=== PATIENT | male | born 2000 | race Two or more races ===

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

== ENCOUNTER 2022-06-13 05:13 | Emergency (ER) | payer OTHER, SELFPAY ==
[2022-06-13 05:31] VITALS: BP 121/76; PULSE 77; RESP 18; TEMP 37; O2SAT 96; BMI 25.8
[2022-06-13 05:52] LABS: MANUAL DIFF FLAG NO
[2022-06-13 05:53] LABS: Basophils Percent Auto 0.5 % (0-2); Eosinophils Percent Auto 0.5 % (0-4); Hematocrit 43.5 % (42.0-52.0); Imm Gran Abs Auto 0.01 X10*3/uL (0.00-0.03); Imm Gran Pct Auto 0.1 % (0.0-0.4); Lymphocytes Absolute Auto 2.6 X10*3/uL (1.2-4.9); Lymphocytes Percent Auto 34.3 % (20-40); Mean Corpuscular HGB Conc 32.2 g/dl (31.0-36.0); Mean Corpuscular Hemoglobin 25.7 pg (27.0-33.0); Mean Corpuscular Volume 79.8 fL (80.0-98.0); Mean Platelet Volume 9.4 fL (9.4-12.4); Monocytes Absolute Auto 0.6 X10*3/uL (0.1-1.2); Monocytes Percent Auto 8.4 % (2-11); Neutrophils Absolute Auto 4.3 x10*3/uL (2.0-8.3); Neutrophils Percent Auto 56.2 % (45-73); Platelet Count 229 X10*3/uL (160-400); Red Blood Count 5.45 X10*6/uL (4.60-5.80); White Blood Count 7.7 X10*3/uL (4.8-10.8)
[2022-06-13 06:09] LABS: Anion Gap 12 (12-20); Blood Urea Nitrogen 11 mg/dL (9-16); Calcium 9.1 mg/dL (8.4-10.2); Carbon Dioxide 25 mmol/L (22-29); Chloride 107 mmol/L (96-108); Creatinine Clr Calc Pharmacy 112.6; Estimated Glomerular Filt Rate > 60; Glucose Random 107 mg/dL (60-115); Potassium 4.3 mmol/L (3.3-5.1); Sodium 140 mmol/L (135-145)
[2022-06-13 06:29] LABS: Influenza A PCR NEGATIVE (Negative); Influenza B PCR NEGATIVE (Negative); Resp Syncy Virus RNA Qual PCR NEGATIVE (Negative); SARS COV2 PCR INHOUSE NEGATIVE (Negative)
[2022-06-13 07:10] VITALS: BP 104/74; PULSE 71; RESP 16; TEMP 37.3; O2SAT 99
[2022-06-13 09:05] VITALS: BP 108/60; PULSE 83; RESP 18; TEMP 36.7; O2SAT 99
--- NOTE | 2022-06-13 10:26 | ED_ITS ---
HPI - Abdominal Pain General Chief Complaint: Abdominal Pain Stated Complaint: Abd pain Time Seen by Provider: 06/13/22 10:17 Source: patient Limitations: no limitations History of Present Illness HPI narrative: Patient complaining of epigastric pain which started last night. Sudden-onset. Several episodes of vomiting. He states he had an episode 1 time before which was attributed to lactose intolerance. He denies eating dairy however. No diarrhea but states he has had multiple bowel movements. No fevers or chills. Currently denies nausea. Related Data Previous Rx's Medication Instructions Recorded sulfacetamide sodium 10 % eye 1 drp ophthalmic-Right Q4H #5 mL 12/01/20 drops (Bleph-10) omeprazole 20 mg capsule,delayed 20 mg PO DAILY #30 caps 06/13/22 release Allergies Allergy/AdvReac Type Severity Reaction Status Date / Time No Known Allergies Allergy Verified 06/13/22 07:27 Review of Systems Comments: No fevers or chills Comments: No chest pain Comments: No cough or dyspnea Comments: Abdominal discomfort as described PMFSH Past Medical History Medical History (Updated 06/13/22 @ 11:30 by Minh Coker MD) Asthma No known health problems Social History Social History Advance Directives: No Advance Directives Information Provided: Yes Physical Exam ED Vital Signs: Vital Signs - 24 hr 06/13/22 05:31 06/13/22 07:10 06/13/22 09:05 Temperature 98.6 F 99.2 F 98.0 F Pulse Rate 77 71 83 Respiratory Rate 18 16 18 Blood Pressure 121/76 104/74 108/60 Pulse Oximetry 96 99 99 Oxygen Delivery Method Room Air Room Air Room Air 06/13/22 10:36 Temperature 98.6 F Pulse Rate 75 Respiratory Rate 20 Blood Pressure 123/70 Pulse Oximetry 100 Oxygen Delivery Method Room Air BMI result Body Mass Index 25.8 Const Other: Awake and alert. No acute distress. Vital signs stable HENMT Other: Mucosa moist Resp Other: Clear and equal bilaterally without wheezes rales or rhonchi Cardio Other: Regular rate and rhythm without murmurs rubs or gallops GI Other: Soft. Tender epigastrium without guarding or rebound. Nondistended. No organomegaly. Normoactive bowel sounds Skin Other: Warm and dry without rash Medical Decision Making Medical Decision Making MDM Narrative: Patient with vomiting, sudden onset overnight with increased bowel movements without priti diarrhea. Some epigastric tenderness but no evidence of focal right upper or lower abdominal pain. He is no longer nauseous. Will treat with GI cocktail and omeprazole. 10:29. Lab work so far is unremarkable. CBC is normal. Electrolytes and BUN and creatinine are normal. Await LFTs and lipase. 11:28. Lipase is normal. LFTs are mildly elevated although without evidence of obstruction. Patient is feeling 100% better after the GI cocktail. I do not think the elevated LFTs are directly causing his symptoms and his more likely gastritis. Will start him on proton pump inhibitor and have him follow-up with gastroenterology Lab Data 06/13/22 05:47 06/13/22 05:47 Labs: Lab Results 06/13/22 06/13/22 06/13/22 Range/Units 05:44 05:47 05:47 WBC 7.7 (4.8-10.8) X10*3/uL RBC 5.45 (4.60-5.80) X10*6/uL Hgb 14.0 (14.0-18.0) g/dl Hct 43.5 (42.0-52.0) % MCV 79.8 L (80.0-98.0) fL MCH 25.7 L (27.0-33.0) pg MCHC 32.2 (31.0-36.0) g/dl RDW 15.0 (11.0-16.0) % Plt Count 229 (160-400) X10*3/uL MPV 9.4 (9.4-12.4) fL Immature Gran % (Auto) 0.1 (0.0-0.4) % Neut % (Auto) 56.2 (45-73) % Lymph % (Auto) 34.3 (20-40) % [place] % (Auto) 8.4 (2-11) % Eos % (Auto) 0.5 (0-4) % Baso % (Auto) 0.5 (0-2) % Lymph # (Auto) 2.6 (1.2-4.9) X10*3/uL [place] # (Auto) 0.6 (0.1-1.2) X10*3/uL Eos # (Auto) 0.0 (0.0-0.4) X10*3/uL Baso # (Auto) 0.0 (0.0-0.2) X10*3/uL Abs Immat Gran (auto) 0.01 (0.00-0.03) X10*3/uL Absolute Neuts (auto) 4.3 (2.0-8.3) x10*3/uL Absolute Nucleated RBC 0.000 (0.0-0.012) X10*3/uL Nucleated RBC % (auto) 0.0 (0.0-0.2) /100WBC Sodium 140 (135-145) mmol/L Potassium 4.3 (3.3-5.1) mmol/L Chloride 107 (96-108) mmol/L Carbon Dioxide 25 (22-29) mmol/L Anion Gap 12 (12-20) BUN 11 (9-16) mg/dL Creatinine 1.08 (0.5-1.4) mg/dL Estim Creat Clear Calc 112.6 Estimated GFR > 60 Random Glucose 107 (60-115) mg/dL Calcium 9.1 (8.4-10.2) mg/dL Total Bilirubin 0.9 (0.0-1.0) mg/dL Direct Bilirubin 0.3 (0.0-0.5) mg/dL AST 85 H (5-37) U/L ALT 184 H (0-40) U/L Alkaline Phosphatase 138 H (39-117) U/L Total Protein 7.5 (6.5-8.0) g/dL Albumin 4.1 (3.5-5.0) g/dL Lipase 21 (8-78) U/L Influenza Type A (PCR) NEGATIVE (Negative) Influenza Type B (PCR) NEGATIVE (Negative) RSV RNA Qual (PCR) NEGATIVE (Negative) SARS-CoV-2 RNA (RT-PCR) NEGATIVE (Negative) Medications Administered Discontinued Medications Generic Name Dose Route Start Last Admin Trade Name Freq PRN Reason Stop Dose Admin Al Hydroxide/Mg Hydroxide 30 ml 06/13/22 10:26 06/13/22 10:44 Magnesium Hydrox/Alum Hydrox 30 Ml Oral.Susp PO 06/13/22 10:27 30 ml ONCE ONE Administration Lidocaine HCl 15 ml 06/13/22 10:26 06/13/22 10:44 Lidocaine Hcl Viscous 2 % 15 Ml Solution PO 06/13/22 10:27 15 ml ONCE ONE Administration Omeprazole 20 mg 03/01/23 10:26 06/13/22 10:43 Omeprazole 20 Mg Capsule.Dr PO 06/13/22 10:27 20 mg ONCE ONE Administration Discharge Plan Discharge Clinical Impression: Gastritis Patient Disposition: Home, Self-Care Instructions: Gastritis (ED) Additional Instructions: Your workup today was reassuring. Your liver function tests were mildly elevated which is a nonspecific finding. Be sure to follow-up with gastroenterology for follow-up. In the meantime I am prescribing an acid blocking medicine Prescriptions: New omeprazole 20 mg capsule,delayed release(DR/EC) 20 mg PO DAILY Qty: 30 0RF No Action sulfacetamide sodium [Bleph-10] 10 % drops 1 drp ophthalmic-Right Q4H Qty: 5 0RF Referrals: Logan Reis [Physician] -
[2022-06-13 10:36] VITALS: BP 123/70; PULSE 75; RESP 20; TEMP 37; O2SAT 100
[2022-06-13] MEDS: Omeprazole 20 MG CAPSULE.DR PO (10:43)
[2022-06-13] MEDS: Lidocaine HCl Viscous 2 % 15 ML SOLUTION PO (10:44)
[2022-06-13] MEDS: Magnesium Hydrox/Alum Hydrox 30 ML ORAL.SUSP PO (10:44)
[2022-06-13 10:55] LABS: Alanine Aminotransferase 184 U/L (0-40); Albumin Level 4.1 g/dL (3.5-5.0); Alkaline Phosphatase 138 U/L (39-117); Aspartate Amino Transferase 85 U/L (5-37); Bilirubin Direct 0.3 mg/dL (0.0-0.5); Bilirubin Total 0.9 mg/dL (0.0-1.0); Lipase 21 U/L (8-78); Total Protein 7.5 g/dL (6.5-8.0)
[2022-06-13 11:51] LABS: Appearance Urine Clear; Color Urine Yellow; Glucose Urine UA Negative (Negative); Leukocyte Esterase Urine Negative (Negative); Nitrite Urine Negative (Negative); Specific Gravity - Urine 1.025 (1.005-1.025); Urine Blood Negative (Negative); Urine Ketones Negative (Negative); Urine Protein Trace mg/dL (Neg-Trace)
== END 2022-06-13 11:41 | disposition home or self-care (01) ==
PROVIDERS: Emergency Provider Emergency Medicine
DX: K29.70 Gastritis, unspecified, without bleeding (principal); R10.13 Epigastric pain; Z20.822 Contact with and (suspected) exposure to COVID-19; Z20.828 Contact with and (suspected) exposure to other viral communicable diseases
CPT/HCPCS: 0241U; 36415; 80048; 80076; 81003; 83690; 85025; 99283

== ENCOUNTER 2022-09-30 19:05 | Emergency (ER) | payer OTHER, SELFPAY ==
[2022-09-30 19:06] VITALS: BP 153/100; PULSE 73; RESP 20; TEMP 36.7; O2SAT 99; BMI 25.1
[2022-09-30 19:18] LABS: MANUAL DIFF FLAG NO
[2022-09-30 19:21] LABS: Basophils Absolute Auto 0.1 X10*3/uL (0.0-0.2); Basophils Percent Auto 0.4 % (0-2); Eosinophils Absolute Auto 0.2 X10*3/uL (0.0-0.4); Eosinophils Percent Auto 1.4 % (0-4); Hematocrit 45.4 % (42.0-52.0); Hemoglobin 14.6 g/dl (14.0-18.0); Imm Gran Abs Auto 0.02 X10*3/uL (0.00-0.03); Imm Gran Pct Auto 0.2 % (0.0-0.4); Lymphocytes Absolute Auto 2.7 X10*3/uL (1.2-4.9); Lymphocytes Percent Auto 23.9 % (20-40); Mean Corpuscular HGB Conc 32.2 g/dl (31.0-36.0); Mean Corpuscular Hemoglobin 25.9 pg (27.0-33.0); Mean Corpuscular Volume 80.5 fL (80.0-98.0); Mean Platelet Volume 9.6 fL (9.4-12.4); Monocytes Absolute Auto 0.8 X10*3/uL (0.1-1.2); Monocytes Percent Auto 6.9 % (2-11); Neutrophils Absolute Auto 7.6 x10*3/uL (2.0-8.3); Neutrophils Percent Auto 67.2 % (45-73); Platelet Count 266 X10*3/uL (160-400); Red Blood Count 5.64 X10*6/uL (4.60-5.80); White Blood Count 11.4 X10*3/uL (4.8-10.8)
[2022-09-30 19:29] LABS: Appearance Urine Clear; Color Urine Yellow; Glucose Urine UA Negative (Negative); Leukocyte Esterase Urine Trace (Negative); Nitrite Urine Negative (Negative); PH 7.5 (5.0-9.0); Specific Gravity - Urine 1.025 (1.005-1.025); UMIC TRIGGER UACC YES; Urine Blood Negative (Negative); Urine Ketones Trace mg/dL (Negative); Urine Protein Trace mg/dL (Neg-Trace)
[2022-09-30 19:34] LABS: Bacteria Urine None Seen (None Seen); Hyaline Casts Urine 0-2 /LPF (0-2); RBC Urine 0-2 /HPF (0-2); Squamous Epithelial Cell Urine 0-2 /HPF (0-2); WBC Urine 0-5 /HPF (0-5)
--- NOTE | 2022-09-30 19:34 | PC.NURSE ---
Assumed care of pt. Pt ambulated to room under power, no acute distress noted. Pt c/o upper abdominal pain, bloating with gas x 1 month, states worse when eating fatty foods. Denies previous surgeries. Sts had previous prescription for omeprazole that worked for his pain, ran out of script. 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 On assessment, active bowel sounds, no pain with palpation. Has talen OTC medications for acid and gas with no relief. Pending lab results and urine. WCTM
[2022-09-30 19:36] LABS: Alanine Aminotransferase 27 U/L (0-40); Albumin Level 4.6 g/dL (3.5-5.0); Alkaline Phosphatase 127 U/L (39-117); Anion Gap 13 (12-20); Aspartate Amino Transferase 20 U/L (5-37); Bilirubin Total 1.1 mg/dL (0.0-1.0); Blood Urea Nitrogen 13 mg/dL (9-16); Calcium 9.5 mg/dL (8.4-10.2); Carbon Dioxide 25 mmol/L (22-29); Chloride 107 mmol/L (96-108); Creatinine Clr Calc Pharmacy 87.2; Estimated Glomerular Filt Rate > 60; Glucose Random 94 mg/dL (60-115); Lipase 20 U/L (8-78); Potassium 4.2 mmol/L (3.3-5.1); Sodium 141 mmol/L (135-145); Total Protein 8.3 g/dL (6.5-8.0)
--- NOTE | 2022-09-30 19:50 | ED_ITS ---
HPI - General Adult General Chief complaint: Abdominal Pain Stated complaint: abd pain Time Seen by Provider: 09/30/22 19:40 Source: patient and clinical abstractor Mode of arrival: ambulatory Limitations: language barrier History of Present Illness HPI narrative: Patient is a 21 year old assigned male at with a history of GERD presenting to the emergency department today with epigastric pain. Patient states that over the last month he has had epigastric pain that is worse after he eats. Patient states that previously he was given omeprazole which helped but he has been out for at least a month. Patient denies any dizziness, lightheadedness, nausea, vomiting, fever, chills, blurry vision, double vision, loss of vision, chest pain, difficulty breathing, shortness of breath, back pain, night sweats, pain with urination, increased urinary frequency, increased urinary urgency, blood in his urine or stool, syncope or a near syncopal episode, recent trauma or falls, bowel incontinence, bladder incontinence, bowel retention, bladder retention, or any other complaints at this time. Onset (ago): month(s) (1) Location: abdomen Radiation: non-radiation Severity: mild Severity scale (1-10): 3 Quality: aching Pain Consistency: intermittent Relieving factors: none Exacerbating factors: none Associated symptoms: denies other symptoms Treatments prior to arrival: none Related Data Previous Rx's Medication Instructions Recorded sulfacetamide sodium 10 % eye 1 drp ophthalmic-Right Q4H #5 mL 12/01/20 drops (Bleph-10) omeprazole 20 mg capsule,delayed 20 mg PO DAILY #30 caps 06/13/22 release omeprazole 20 mg capsule,delayed 20 mg PO DAILY #30 caps 09/30/22 release Allergies Allergy/AdvReac Type Severity Reaction Status Date / Time No Known Allergies Allergy Verified 09/30/22 19:06 Review of Systems Constitutional: Constitutional: Reports no additional constitutional complaints, Denies chills, Denies fever(s) and Denies night sweats Eyes: Eyes: Reports no additional eye complaints, Denies blurry vision, Denies change in vision, Denies diplopia, Denies eye discharge, Denies loss of vision and Denies eye pain ENT: Denies dizziness Cardiovascular: Cardiovascular: Reports no additional cardiovascular complaints, Denies chest pain, Denies lightheadedness, Denies Loss of Consciousness and Denies dyspnea Respiratory: Respiratory: Reports no additional respiratory complaints and Denies dyspnea Gastrointestinal: Gastrointestinal: Reports no additional gastrointestinal complaints, Reports abdominal pain (epigastric pain), Denies melena, Denies hematochezia, Denies change in bowel habits and Denies change in stool character Genitourinary: Genitourinary: Reports no additional male genitourinary complaints, Denies hematuria, Denies oliguria, Denies difficulty urinating, Denies dysuria, Denies urinary frequency, Denies urinary hesitancy, Denies urinary incontinence and Denies urinary urgency Musculoskeletal: Musculoskeletal: Reports no additional musculoskeletal compla ints, Denies numbness and Denies tingling Neurologic: Denies dizziness, Denies loss of vision, Denies numbness and Denies tingling Psychiatric: Psychiatric: Reports no additional psychiatric complaints Endocrine: Endocrine: Reports no additional endocrine complaints Hematologic/Lymphatic: Hematologic/Lymphatic: Reports no additional hematologic/lymphatic complaints Allergic/Immunologic: Allergic/Immunologic: Reports no additional allergic/immunologic complaints PMFSH Past Medical History Attestation statement: The following information was validated with the patient. Source: old records reviewed and nursing notes reviewed Medical History Asthma No known health problems Social History Social History Alcohol intake: current Alcohol intake frequency: holidays/special occasions only Smoked in Last 30 Days: No Use of substances other than those prescribed or required for medical reasons: No Advance Directives: No Advance Directives Information Provided: No Physical Exam ED Vital Signs: Vital Signs - 24 hr 09/30/22 19:06 09/30/22 20:13 Temperature 98.1 F 98.1 F Pulse Rate 73 68 Respiratory Rate 20 16 Blood Pressure 153/100 H 115/78 Pulse Oximetry 99 98 Oxygen Delivery Method Room Air Room Air BMI result Body Mass Index 25.1 Const General: cooperative, no acute distress, alert and awake Nutritional Appearance: well nourished Orientation/consciousness: patient oriented x3 Limitations: no limitations HENMT Head: Yes normal to inspection and Yes atraumatic Ears: hearing grossly normal bilaterally and external ears normal General nose exam: Normal external nose present, no nasal discharge noted and no epistaxis Face and sinus: Yes normal facial exam, No abrasion and No laceration Mouth: Normal oral and palatal mucosa present, no drooling and no muffled voice Eyes General: appearance normal, both eyes and all related structures Periorbital: periorbital findings normal Eyelids: Yes eyelids normal Conjunctivae: conjunctivae normal Pupils: Equal, round and reactive pupils present EOM: EOMs intact bilaterally Neck Neck: Yes normal visual inspection, Yes full ROM and Yes no lymphadenopathy Chest Chest palpation & inspection: normal inspection of the chest Resp Effort & Inspection: normal respiratory effort and able to speak in complete sentences Auscultation: clear to auscultation bilaterally Cardio Rate: regular rate Rhythm: regular rhythm GI Inspection: Yes normal to inspection Palpation (GI): Soft to palpation, not firm, nontender and no guarding Neuro General: patient oriented x3 and moves all extremities Cranial nerves: Yes Equal, round and reactive pupils present Cognition (Neuro): normal cognition Motor exam (neuro): 5/5 motor strength present throughout Sensory Exam: Normal double simultaneous stimulation for sensation Coordination: [id number] test normal Extrem General: Yes normal to inspection, Yes full ROM and Yes capillary refill normal Psych Appearance: grossly normal Mental Status: mental status grossly normal Affect: normal affect Attitude: cooperative Thought process: Normal thought process present Thought content: Normal thought content present Insight: Good insight present (Psych) Medications Administered Discontinued Medications Generic Name Dose Route Start Last Admin Trade Name Nadia PRN Reason Stop Dose Admin Al Hydroxide/Mg Hydroxide 15 ml 09/30/22 19:58 09/30/22 20:14 Magnesium Hydrox/Alum Hydrox 30 Ml Oral.Susp PO 09/30/22 19:59 15 ml ONCE ONE Administration Sodium Chloride 1,000 mls @ 999 mls/hr 09/30/22 20:00 09/30/22 21:10 Ns IV 09/30/22 21:00 Infused .Q1H1M MAURA Infusion Lidocaine HCl 15 ml 09/30/22 19:58 09/30/22 20:14 Lidocaine Hcl Viscous 2 % 15 Ml Solution MUCOUS MEM 09/30/22 19:59 15 ml ONCE ONE Administration Ondansetron HCl 4 mg 09/30/22 19:58 09/30/22 20:14 Ondansetron Hcl 4 Mg/2 Ml Vial IVPUSH 09/30/22 19:59 4 mg ONCE ONE Administration Pantoprazole Sodium 40 mg 09/30/22 19:58 09/30/22 20:14 Pantoprazole Sodium 40 Mg/10 Ml Vial IVPUSH 09/30/22 19:59 40 mg ONCE ONE Administration Medical Decision Making Medical Decision Making [facility] Narrative: Patient is a 21 year old assigned male at with a history of GERD presenting to the emergency department today with epigastric pain. Patient's physical exam was unremarkable. Patient's blood work was unremarkable. I explained my physical exam findings as well as all test results to the patient. I answered all questions asked by the patient. Patient received a GI cocktail which he stated helped his symptoms significantly. I stressed the importance of the patient taking his medication as prescribed. I stressed the importance of the patient following up with his primary care provider and a GI specialist. I stressed the importance of the patient returning to the emergency department immediately if his symptoms were to worsen or if he were to develop any dizziness, shortness of breath, difficulty breathing, chest pain, blurry vision, loss of vision, nausea, vomiting, abdominal pain, fever, chills, back pain, or any other complaints. Patient verbalized agreement and understanding with this treatment plan and discharge. Differential Diagnosis Differential Diagnoses: The differential diagnosis associated with the presentation includes GERD, epigastric pain Admission/Observation Consideration of admission/observation: Escalation of care including admission/observation considered Patient would have been admitted to the hospital had his work up had any findings where hospital admission was appropriate. Lab Data MDM Lab Attestation statement: I reviewed the patient's lab results. My interpretation of these studies and their corresponding values is that they are grossly normal. 09/30/22 19:14 09/30/22 19:14 Labs: Lab Results 09/30/22 09/30/22 09/30/22 Range/Units 19:14 19:14 19:23 WBC 11.4 H (4.8-10.8) X10*3/uL RBC 5.64 (4.60-5.80) X10*6/uL Hgb 14.6 (14.0-18.0) g/dl Hct 45.4 (42.0-52.0) % MCV 80.5 (80.0-98.0) fL MCH 25.9 L (27.0-33.0) pg MCHC 32.2 (31.0-36.0) g/dl RDW 14.0 (11.0-16.0) % Plt Count 266 (160-400) X10*3/uL MPV 9.6 (9.4-12.4) fL Immature Gran % (Auto) 0.2 (0.0-0.4) % Neut % (Auto) 67.2 (45-73) % Lymph % (Auto) 23.9 (20-40) % [place] % (Auto) 6.9 (2-11) % Eos % (Auto) 1.4 (0-4) % Baso % (Auto) 0.4 (0-2) % Lymph # (Auto) 2.7 (1.2-4.9) X10*3/uL [place] # (Auto) 0.8 (0.1-1.2) X10*3/uL Eos # (Auto) 0.2 (0.0-0.4) X10*3/uL Baso # (Auto) 0.1 (0.0-0.2) X10*3/uL Abs Immat Gran (auto) 0.02 (0.00-0.03) X10*3/uL Absolute Neuts (auto) 7.6 (2.0-8.3) x10*3/uL Absolute Nucleated RBC 0.000 (0.0-0.012) X10*3/uL Nucleated RBC % (auto) 0.0 (0.0-0.2) /100WBC Sodium 141 (135-145) mmol/L Potassium 4.2 (3.3-5.1) mmol/L Chloride 107 (96-108) mmol/L Carbon Dioxide 25 (22-29) mmol/L Anion Gap 13 (12-20) BUN 13 (9-16) mg/dL Creatinine 1.35 (0.5-1.4) mg/dL Estim Creat Clear Calc 87.2 Estimated GFR > 60 Random Glucose 94 (60-115) mg/dL Calcium 9.5 (8.4-10.2) mg/dL Total Bilirubin 1.1 H (0.0-1.0) mg/dL AST 20 (5-37) U/L ALT 27 (0-40) U/L Alkaline Phosphatase 127 H (39-117) U/L Total Protein 8.3 H (6.5-8.0) g/dL Albumin 4.6 (3.5-5.0) g/dL Lipase 20 (8-78) U/L Urine Color Yellow Urine Appearance Clear Urine pH 7.5 (5.0-9.0) Ur Specific [place] 1.025 (1.005-1.025) Urine Protein Trace (Neg-Trace) mg/dL Urine Glucose (UA) Negative (Negative) mg/dL Urine Ketones Trace (Negative) mg/dL Urine Blood Negative (Negative) Urine Nitrite Negative (Negative) Ur Leukocyte Esterase Trace H (Negative) Urine RBC 0-2 (0-2) /HPF Urine WBC 0-5 (0-5) /HPF Ur Squamous Epith Cells 0-2 (0-2) /HPF Urine Bacteria None Seen (None Seen) Hyaline Casts 0-2 (0-2) /LPF Discharge Plan Discharge Clinical Impression: Chronic GERD Patient Disposition: Home, Self-Care Instructions: Gastroesophageal Reflux Disease (DC) Additional Instructions: Follow up with your primary care provider and a GI specialist. Return to the emergency department immediately if your symptoms worsen or if you develop any dizziness, shortness of breath, difficulty breathing, chest pain, blurry vision, loss of vision, nausea, vomiting, abdominal pain, fever, chills, back pain, or any other complaints. Vero un seguimiento con marinelli proveedor de atenci?n primaria y un especialista en gastroenterolog?a. Regrese a la louise de emergencias de inmediato si naomy s?ntomas empeoran o si presenta mareos, dificultad para respirar, dolor de pecho, visi?n borrosa, p?rdida de la visi?n, n?useas, v?mitos, dolor abdominal, fiebre, escalofr?os, dolor de espalda o cualquier otras quejas. Prescriptions: New omeprazole 20 mg capsule,delayed release(DR/EC) 20 mg PO DAILY Qty: 30 0RF No Action sulfacetamide sodium [Bleph-10] 10 % drops 1 drp ophthalmic-Right Q4H Qty: 5 0RF omeprazole 20 mg capsule,delayed release(DR/EC) 20 mg PO DAILY Qty: 30 0RF [place] [facility] [facility] [place] (Call to establish and follow up with a primary care provider. If you already have a primary care provider, please follow up with them. Llame para establecer y hacer un seguimiento con un proveedor de atenci?n primaria. Si ya tiene un proveedor de atenci?n primaria, vero un seguimiento con ?l.) [facility] [place] [facility] [place] (Call to establish and follow up with a primary care provider. If you already have a primary care provider, please follow up with them. Llame para establecer y hacer un seguimiento con un proveedor de atenci?n primaria. Si ya tiene un proveedor de atenci?n primaria, vero un seguimiento con ?l.) [facility] [place] [facility] [place]] (Call to establish and follow up with a primary care provider. If you already have a primary care provider, please follow up with them. Llame para establecer y hacer un seguimiento con un proveedor de atenci?n primaria. Si ya tiene un proveedor de atenci?n primaria, vero un seguimiento con ?l.) Stand Alone Forms: Work/School Release Interventions: ED Discharge Assessment Last Done: 09/30/22 21:11 Discharge Date/Time: 09/30/22 21:11 Print Language: Yi
[2022-09-30 20:13] VITALS: BP 115/78; PULSE 68; RESP 16; TEMP 36.7; O2SAT 98
[2022-09-30] MEDS: Lidocaine HCl Viscous 2 % 15 ML SOLUTION MUCOUS MEM (20:14)
[2022-09-30] MEDS: Pantoprazole Sodium 40 MG/10 ML VIAL IVPUSH (20:14)
[2022-09-30] MEDS: 0.9 % Sodium Chloride 1,000 ML 999 ML IV (20:14)
[2022-09-30] MEDS: Magnesium Hydrox/Alum Hydrox 30 ML ORAL.SUSP 15 ML PO (20:14)
[2022-09-30] MEDS: ondansetron HCL 4 MG/2 ML VIAL IVPUSH (20:14)
== END 2022-09-30 21:11 | disposition home or self-care (01) ==
PROVIDERS: Emergency Provider Emergency Medicine
DX: K21.9 Gastro-esophageal reflux disease without esophagitis (principal); Z79.899 Other long term (current) drug therapy
CPT/HCPCS: 36415; 80053; 81001; 83690; 85025; 96361; 96374; 96375; 99284; J2405

== ENCOUNTER 2022-10-07 20:49 | Emergency (ER) | payer OTHER, SELFPAY ==
[2022-10-07 21:02] VITALS: BP 127/74; PULSE 66; RESP 18; TEMP 37; O2SAT 99; BMI 25.0
== END 2022-10-08 00:28 | disposition left against medical advice (07) ==
PROVIDERS: Emergency Provider Emergency Medicine
DX: R10.9 Unspecified abdominal pain (principal)
CPT/HCPCS: 99281

== ENCOUNTER 2024-03-05 18:15 | Emergency (ER) | payer OTHER, SELFPAY ==
[2024-03-05 18:39] VITALS: BP 131/81; PULSE 67; RESP 18; TEMP 36.8; O2SAT 99; BMI 25.2
--- NOTE | 2024-03-05 18:42 | ED.GENADULT ---
HPI - General Adult General Chief complaint: Urogenital-Male Stated complaint: lwr abd pain History of Present Illness HPI narrative: Patient left before completion of treatment by ED provider. Related Data Previous Rx's ?Medication ?Instructions ?Recorded sulfacetamide sodium 10 % eye 1 drp ophthalmic-Right Q4H #5 mL 12/01/20 drops (Bleph-10) omeprazole 20 mg capsule,delayed 20 mg PO DAILY #30 caps 06/13/22 release omeprazole 20 mg capsule,delayed 20 mg PO DAILY #30 caps 09/30/22 release Allergies Allergy/AdvReac Type Severity Reaction Status Date / Time No Known Allergies Allergy Verified 03/05/24 18:41 [facility] Past Medical History Medical History Asthma No known health problems Social History Social History Alcohol intake: current Alcohol intake frequency: holidays/special occasions only Advance Directives: No Advance Directives Information Provided: No Do you have a plan to hurt others: No Plan Physical Exam ED Vital Signs: Vital Signs - 24 hr 03/05/24 18:39 Temperature 98.3 F Pulse Rate 67 Respiratory Rate 18 Blood Pressure 131/81 Pulse Oximetry 99 Oxygen Delivery Method Room Air BMI result Body Mass Index 25.2 Course Course Course Narrative: RME: 23-year-old male presents to ED for dysuria. Patient states boyfriend cheated on him he has bleed he has symptoms due to STI exposure. CTA NG UA ordered Medical Decision Making Lab Data Labs: Lab Results 03/05/24 Range/Units 20:11 Urine Color Yellow Urine Appearance Clear Urine pH 6.0 (5.0-9.0) Ur Specific [place] 1.025 (1.005-1.025) Urine Protein Negative (Neg-Trace) mg/dL Urine Glucose (UA) Negative (Negative) mg/dL Urine Ketones Trace (Negative) mg/dL Urine Blood Negative (Negative) Urine Nitrite Negative (Negative) Ur Leukocyte Esterase Negative (Negative) Discharge Plan Discharge Clinical Impression: Dysuria Patient Disposition: Left W/O Completing Treatment Prescriptions: No Action sulfacetamide sodium [Bleph-10] 10 % drops 1 drp ophthalmic-Right Q4H Qty: 5 0RF omeprazole 20 mg capsule,delayed release(DR/EC) 20 mg PO DAILY Qty: 30 0RF omeprazole 20 mg capsule,delayed release(DR/EC) 20 mg PO DAILY Qty: 30 0RF Discharge Date/Time: 03/05/24 22:26
[2024-03-05 20:20] LABS: Appearance Urine Clear; Color Urine Yellow; Glucose Urine UA Negative (Negative); Leukocyte Esterase Urine Negative (Negative); Nitrite Urine Negative (Negative); Specific Gravity - Urine 1.025 (1.005-1.025); Urine Blood Negative (Negative); Urine Ketones Trace mg/dL (Negative); Urine Protein Negative (Neg-Trace)
[2024-03-06 14:29] LABS: CT PCR NOT DETECTED (Not Detect.); NG PCR NOT DETECTED (Not Detect.)
== END 2024-03-05 22:26 | disposition left against medical advice (07) ==
PROVIDERS: Physician Assistant; Emergency Provider Internal Medicine
DX: R30.0 Dysuria (principal); R10.2 Pelvic and perineal pain; Z79.899 Other long term (current) drug therapy
CPT/HCPCS: 81003; 87491; 87591; 99281; 99282

== ENCOUNTER 2024-03-07 08:44 | Emergency (ER) | payer SELFPAY ==
--- NOTE | ~2024-03-07 | US_ITS ---
EXAMINATION: US SCROTUM CLINICAL INFORMATION: Bilateral scrotal pain. COMPARISON: None available. TECHNIQUE: A sonogram of the scrotum was performed assessing portillo-scale appearance and color Doppler flow. Spectral Doppler analysis of the arterial and venous flow were performed in the testes bilaterally. FINDINGS: RIGHT: Right testicle measures 3.7 x 2.0 x 2.5 cm, volume 1.5 mL. No focal testicular parenchymal lesions are visualized. Spectral Doppler analysis of the arterial and venous flow is normal in the right testis. Right epididymal head is normal in size. No right hydrocele or varicocele is seen. Right epididymal Doppler flow is normal. LEFT: Left testicle measures 3.4 x 2.1 x 2.8 cm, volume 10.2 mL. No focal testicular parenchymal lesions are visualized. Spectral Doppler analysis of the arterial and venous flow is normal in the left testis. Left epididymal head is normal in size. A few tiny cysts noted within the left epididymal head. No left hydrocele or varicocele is seen. Left epididymal Doppler flow is normal. US/US scrotum IMPRESSION: Symmetrically sized testicles demonstrating normal arterial and venous waveforms. Electronically signed by: Andrae Salvador MD 03/07/2024 10:59 AM [facility]
[2024-03-07 08:48] VITALS: BP 112/68; PULSE 89; RESP 18; TEMP 36.7; O2SAT 99; BMI 24.8
--- NOTE | 2024-03-07 09:52 | ED_ITS ---
HPI - General Adult General Chief complaint: General Medical Stated complaint: abd pain Time Seen by Provider: 03/07/24 09:09 Source: patient Mode of arrival: ambulatory Limitations: no limitations History of Present Illness ED Provider: GRICELDA MOORE PA-C HPI narrative: 23 year old male with no significant pmhx presents to the ED today for evaluation of intermittent groin pain, urinary frequency/ urgency, and white gel-like penile discharge x2 weeks. Reports episode of dysuria one week ago which has since resolved. Denies any penile lesions. Patient reports having sexual intercourse with his male partner. Approximately 2 weeks ago he found out that his partner was sexually active with another male individual. He reports following up with a provider in [place] for STD/ HIV/ syphilis testing every 3 months. He has an appointment scheduled with them next week for routine testing. He has never tested positive for STDs in the past. Denies fever, chills, rashes, N/V, abdominal pain, flank pain, hematuria. Related Data Previous Rx's ?Medication ?Instructions ?Recorded sulfacetamide sodium 10 % eye 1 drp ophthalmic-Right Q4H #5 mL 12/01/20 drops (Bleph-10) omeprazole 20 mg capsule,delayed 20 mg PO DAILY #30 caps 06/13/22 release omeprazole 20 mg capsule,delayed 20 mg PO DAILY #30 caps 09/30/22 release Allergies Allergy/AdvReac Type Severity Reaction Status Date / Time No Known Allergies Allergy Verified 03/07/24 08:50 Review of Systems Review of Systems: Constitutional: No fever, chills, fatigue, night sweats, weight changes ENT/Mouth: No ear pain, hearing loss, nasal congestion, sinus pain, rhinorrhea, sore throat Eyes: No eye pain, swelling, redness, vision changes, discharge Cardio: No chest pain, palpitations, [place], orthopnea, peripheral edema Pulm: No SOB, cough, sputum, wheezing, dyspnea, hemoptysis GI: No nausea, vomiting, hematemesis, abdominal pain, diarrhea, constipation, hematochezia, melena : No irregular bleeding, hesitancy, hematuria, flank pain, urinary flow changes, urinary incontinence or retention, +penile discharge, +groin pain, +urinary urgency/ frequency MSK: No back pain, neck pain, joint pain, myalgias Skin: No lesions, rashes Neuro: No weakness, numbness, paresthesias, LOC, dizziness, headache Psych: No anxiety/panic, depression, SI/HI, AH/VH All other systems reviewed and are negative. [facility] Past Medical History Attestation statement: The following information was validated with the patient. Source: old records reviewed and nursing notes reviewed Medical History Asthma No known health problems Social History Social History Alcohol intake: current Alcohol intake frequency: holidays/special occasions only Smoked in Last 30 Days: No Use of substances other than those prescribed or required for medical reasons: Yes Substance Use Type: Marijuana Substance Use Frequency Other:: marijuna gumshirleyes Advance Directives: No Advance Directives Information Provided: Yes Do you have a plan to hurt others: No Plan Physical Exam ED Vital Signs: Vital Signs - 24 hr 03/07/24 08:48 03/07/24 11:50 Temperature 98.1 F 98.1 F Pulse Rate 89 89 Respiratory Rate 18 18 Blood Pressure 112/68 112/68 Pulse Oximetry 99 99 Oxygen Delivery Method Room Air Room Air BMI result Body Mass Index 24.8 vital signs stable, afebrile General: Well appearing, in no acute distress. Skin: Warm, dry, intact. No rashes or lesions. Head: Normocephalic, atraumatic. EENT: Hearing is intact b/l. Conjunctiva clear. PERRLA. EOM intact. Moist mucous membranes.? Neck: Supple without LAD. FROM. Trachea midline.? Cardiac: Chest wall symmetric. RRR Lungs: Normal respiratory effort without accessory muscle use. CTA bilaterally. Abdomen: Soft, non-tender, non-distended. No rebound tenderness or guarding. Positive BS x4. no CVAT. : uncircumcised. no lesions/ ulcers. urethral meatus without discharge. no testicular swelling/ erythema. non tender. small palpable left inguinal lymph node. Back: No midline spinous or paraspinal tenderness. No step off deformity. Ext: Upper and lower extremities atraumatic, without tenderness, deformity, swelling or erythema. Full ROM throughout. Neuro: AOx3. Normal speech.Ambulating with steady gait. Psych: Appropriate mood and affect. Responds appropriately to questions. Course Course Course Narrative: 1142 -- urine negative for infection or blood. He tested negative for gonorrhea and chlamydia. HIV nonreactive. T Pyridium ab reactive -- sent to [facility] for confirmation of active syphilis. Given inguinal LAD, will treat patient in the meantime with 1 time dose of penicillin G for suspected early syphilis. Patient agreeable. bilateral scrotal ultrasound showing symmetrically size testicles demonstrated normal arterial and venous waveforms. > discussed all workup results with patient. confirmed patients phone number and advised him that he will be contacted once the confirmatory results return. advised to abstain from sexual intercourse until he tested negative for all STDs. He does have follow up with his outpatient provider. Advised to follow up within 3-4 weeks for repeat testing. He verbalizes understanding. Medications Administered Discontinued Medications Generic Name Dose Route Start Last Admin Trade Name Freq PRN Reason Stop Dose Admin Penicillin G Benzathine 2,400,000 unit 03/07/24 11:09 03/07/24 11:21 Penicillin G Benzathine 2,400,000 Unit/4 Ml Syringe IM 03/07/24 11:10 2,400,000 unit ONCE ONE Administration Medical Decision Making Medical Decision Making [facility] Narrative: 23 year old male with no significant pmhx presents to the ED today for evaluation of intermittent groin pain, urinary frequency/ urgency, and white gel-like penile discharge x2 weeks. vital signs stable. afebrile. he is nontoxic appearing and in NAD. lying comfortably on exam bed. skin w/d/i, no rashes. there is a small palpable left inguinal lymph node. penis is uncircumcised. no lesions/ ulcers. urethral meatus without discharge. no testicular swelling/ erythema. non tender. abdomen is soft, ND/NT. no rebound/ guarding. no CVAT b/l. Differential diagnosis includes gonorrhea, chlamydia, syphilis, HIV, urinary tract infection. Unlikely orchitis, testicular torsion, balanitis, phimosis, paraphimosis. Plan for gonorrhea/chlamydia testing, syphilis testing, HIV testing, urinalysis, scrotal US, re-evaluation Differential Diagnosis Differential Diagnoses: The differential diagnosis associated with the presentation includes as above. Admission/Observation Not indicated. Lab Data [facility] Lab Attestation statement: I reviewed the patient's lab results. as above. Labs: Lab Results 03/07/24 03/07/24 03/07/24 Range/Units 09:07 10:03 10:12 Urine Color Yellow Urine Appearance Clear Urine pH 6.0 (5.0-9.0) Ur Specific [place] 1.025 (1.005-1.025) Urine Protein Negative (Neg-Trace) mg/dL Urine Glucose (UA) Negative (Negative) mg/dL Urine Ketones Negative (Negative) mg/dL Urine Blood Negative (Negative) Urine Nitrite Negative (Negative) Ur Leukocyte Esterase Negative (Negative) T.pallidum Ab (EIA) Reactive A (Nonreactive) Chlam trachomat DNA PCR NOT DETECTED (Not Detect.) HIV 1&2 Ab/P24 Ag 4thGn Nonreactive (Nonreactive) N.gonorrhoeae DNA (PCR) NOT DETECTED (Not Detect.) Independent Interpretation I performed an independent interpretation of an: Ultrasound Interpretation: scrotal ultrasound with normal a/v flow Radiology Impression Discussion of test interpretation with radiology: I have reviewed the radiologist's reading. Radiologist Impression: EXAMINATION: US SCROTUM CLINICAL INFORMATION: Bilateral scrotal pain. COMPARISON: None available. TECHNIQUE: A sonogram of the scrotum was performed assessing portillo-scale appearance and color Doppler flow. Spectral Doppler analysis of the arterial and venous flow were performed in the testes bilaterally. FINDINGS: RIGHT: Right testicle measures 3.7 x 2.0 x 2.5 cm, volume 1.5 mL. No focal testicular parenchymal lesions are visualized. Spectral Doppler analysis of the arterial and venous flow is normal in the right testis. Right epididymal head is normal in size. No right hydrocele or varicocele is seen. Right epididymal Doppler flow is normal. LEFT: Left testicle measures 3.4 x 2.1 x 2.8 cm, volume 10.2 mL. No focal testicular parenchymal lesions are visualized. Spectral Doppler analysis of the arterial and venous flow is normal in the left testis. Left epididymal head is normal in size. A few tiny cysts noted within the left epididymal head. No left hydrocele or varicocele is seen. Left epididymal Doppler flow is normal. US/US scrotum IMPRESSION: Symmetrically sized testicles demonstrating normal arterial and venous waveforms. Electronically signed by: Andrae Salvador MD 03/07/2024 10:59 AM [facility] External Record Review External record reviewed: Inpatient record Prescription Management I considered prescription management with: Antibiotic Social Determinants Patient?s care significantly limited by Social Determinants of Health including: Other Social Determinant of Health Critical Care Time Critical Care Time Critical Care Time: No Discharge Plan Discharge Clinical Impression: Syphilis Patient Disposition: Home, Self-Care Instructions: Penicillin G Benzathine (By injection), Sexually Transmitted Diseases (ED), Safe Sex Practices (ED) Additional Instructions: Your syphilis testing today returned reactive and has been sent to the state to confirm active syphilis infection. You will be contacted when these confirmatory results come back. You have been treated for this in ED today in the mean time. You received a one time dose of penicillin G (antibiotic). You tested negative for gonorrhea and chlamydia. Your urine does not demonstrate urinary tract infection. Until you are reevaluated by a health care provider, please practice safe sex as discussed. Please also have a conversation with your sexual partners. You should abstain from sex until you have tested negative for any/ all STDs. Please follow up with your provider in 3-4 weeks for repeat syphilis testing to ensure resolution. [facility] can help facilitate these tests. They often have walk-in hours. If new or worsening symptoms occur, please return to the ED. In the case of any emergency, call 911. [facility]: [address] [place] [address] [address], [place] [id number] [phone] Prescriptions: No Action sulfacetamide sodium [Bleph-10] 10 % drops 1 drp ophthalmic-Right Q4H Qty: 5 0RF omeprazole 20 mg capsule,delayed release(DR/EC) 20 mg PO DAILY Qty: 30 0RF omeprazole 20 mg capsule,delayed release(DR/EC) 20 mg PO DAILY Qty: 30 0RF Interventions: ED Discharge Assessment Last Done: 03/07/24 11:50 Discharge Date/Time: 03/07/24 12:02 Print Language: Estonian
[2024-03-07 10:19] LABS: Appearance Urine Clear; Color Urine Yellow; Glucose Urine UA Negative (Negative); Leukocyte Esterase Urine Negative (Negative); Nitrite Urine Negative (Negative); Specific Gravity - Urine 1.025 (1.005-1.025); Urine Blood Negative (Negative); Urine Ketones Negative (Negative); Urine Protein Negative (Neg-Trace)
[2024-03-07 10:43] LABS: Syphilis Screen Reactive (Nonreactive)
[2024-03-07 10:57] LABS: CT PCR NOT DETECTED (Not Detect.); NG PCR NOT DETECTED (Not Detect.)
[2024-03-07 11:01] LABS: HIV AB/AG Nonreactive (Nonreactive); HIV Num 1 0.05 S/CO (0.00-0.99)
[2024-03-07] MEDS: Penicillin G Benzathine 2,400,000 UNIT/4 ML SYRINGE 2400000 UNIT IM (11:21)
[2024-03-07 11:50] VITALS: BP 112/68; PULSE 89; RESP 18; TEMP 36.7; O2SAT 99
[2024-03-16 14:00] LABS: RPR Quantitative Reactive 1:2 (Nonreactive); T.Pallidum Particle Agg Test Reactive (Nonreactive)
== END 2024-03-07 12:02 | disposition home or self-care (01) ==
PROVIDERS: Nurse Practitioner Family; Physician Assistant Medical; Emergency Provider Emergency Medicine
DX: A53.9 Syphilis, unspecified (principal); R10.9 Unspecified abdominal pain
CPT/HCPCS: 36415; 51798; 76870; 81003; 86592; 86780; 87389; 87491; 87591; 96372; 99284; J0561

== ENCOUNTER 2024-03-15 07:44 | Emergency (ER) | payer SELFPAY ==
--- NOTE | ~2024-03-15 | XR_ITS ---
EXAMINATION: XR ABDOMEN KUB CLINICAL INDICATION: Constipation. COMPARISON: None available. TECHNIQUE: AP views of the abdomen. FINDINGS: Mild air and stool throughout the bowel. Nonobstructive bowel gas pattern. No abnormal soft tissue calcification. No acute osseous abnormality. XR/XR KUB IMPRESSION: Mild air and stool throughout the bowel. Electronically signed by: Eddie Gonzalez MD 03/15/2024 09:04 AM [facility]
[2024-03-15 07:47] VITALS: BP 132/69; PULSE 75; RESP 20; TEMP 36.2; O2SAT 100; BMI 25.1
--- NOTE | 2024-03-15 08:15 | ED.ABDPAIN ---
HPI - Abdominal Pain General Chief Complaint: Abdominal Pain Stated Complaint: pain in belly/constipated Time Seen by Provider: 03/15/24 07:58 Source: patient and old records reviewed Mode of arrival: ambulatory Limitations: no limitations History of Present Illness ED Provider: DANAE GLEASON narrative: 23 yo male with PMH of asthma just seen here on 03/07 confirmed syphillis treated with one dose of PCN - he comes in today with c/o constipation and hard stool x 3 days. Some mild nausea but feels full. He tried milk of magnesia yesterday no sig relief. He denies changes in diet/medications. He has had prior gallbladder removal. No fevers, no vomiting, no dysuria. MD elicited complaint: abdominal pain Pertinent past history: none Onset (ago): day(s) (3) Pain Consistency: intermittent Location: periumbilical Severity: mild Quality: fullness Radiation: none Migration to: no migration Exacerbating factors: eating Relieving factors: nothing Associated symptoms: nausea and constipation Treatments prior to arrival: other Related Data Previous Rx's ?Medication ?Instructions ?Recorded sulfacetamide sodium 10 % eye 1 drp ophthalmic-Right Q4H #5 mL 12/01/20 drops (Bleph-10) omeprazole 20 mg capsule,delayed 20 mg PO DAILY #30 caps 06/13/22 release omeprazole 20 mg capsule,delayed 20 mg PO DAILY #30 caps 09/30/22 release lactulose 20 gram/30 mL oral 20 g (30 mL) PO DAILY PRN 03/15/24 solution constipation #1,200 mL Allergies Allergy/AdvReac Type Severity Reaction Status Date / Time No Known Allergies Allergy Verified 03/15/24 07:50 Review of Systems Review of Systems Constitutional : No Weight loss, No Fever, No Chills ENT/Mouth : No sore throat, No Rhinorrhea Eyes: No Swelling, No Redness Cardiovascular : No Chest Pain, No SOB, NoEdema Respiratory : No Cough, No Sputum, No Wheezing Gastrointestinal : Positive Nausea, no Vomiting, no Diarrhea, positive abdominal Pain, No Hematochezia, No Melena, pos constipation Genitourinary : No Dysuria, No Urinary Frequency, No Hematuria, No Urgency Musculoskeletal : No joint pain, No Myalgias, No Joint Swelling Skin : No Skin Lesions, No rash Neuro : No Weakness, No Numbness, No Dizziness, No Headache All other systems reviewed and are negative. [facility] Past Medical History Attestation statement: The following information was validated with the patient. Source: old records reviewed Medical History Asthma No known health problems Social History Social History (Updated 03/15/24 @ 08:17 by Maria Isabel Jurado DO) Alcohol intake: current Alcohol intake frequency: holidays/special occasions only Patient Tobacco Use Status: Never used Tobacco Substance Use Type: Marijuana Advance Directives: No Advance Directives Information Provided: Yes Physical Exam ED Vital Signs: Vital Signs - 24 hr 03/15/24 07:47 Temperature 97.2 F Pulse Rate 75 Respiratory Rate 20 Blood Pressure 132/69 Pulse Oximetry 100 Oxygen Delivery Method Room Air BMI result Body Mass Index 25.1 Appearance: Alert. Oriented X3. No acute distress. Eyes: Pupils equal, round and reactive to light. ENT: Pharynx normal. Neck: Normal inspection. Neck supple. CVS: Normal heart rate and rhythm. Pulses normal. Respiratory: No respiratory distress. Breath sounds normal. Abdomen: Soft and nontender. Skin: Skin warm and dry. Normal skin color. Normal skin turgor. Extremities: No lower extremity edema. No calf ttp Neuro: Oriented X 3. No motor deficit. No sensory deficit. Medical Decision Making Medical Decision Making [facility] Narrative: 23 yo male with PMH of asthma and prior gallbladder removal here with c/o constipation and passing of hard stool but nothing significant - he has no tttp on exam and no signs of clinical obstruction he is just not getting relief with milk of magnesia at this time basic labs, KUB and anticipate new medications that are stronger. Differential Diagnosis Differential Diagnoses: The differential diagnosis associated with the presentation includes constipation, ileus, lyte abnormality Admission/Observation Consideration of admission/observation: Escalation of care including admission/observation considered no vomiting can trial meds as outpatient Lab Data [facility] Lab Attestation statement: I reviewed the patient's lab results. 03/15/24 08:14 03/15/24 08:14 Labs: Lab Results 03/15/24 Range/Units 08:14 WBC 6.7 (4.8-10.8) X10*3/uL RBC 5.40 (4.60-5.80) X10*6/uL Hgb 14.0 (14.0-18.0) g/dl Hct 43.3 (42.0-52.0) % MCV 80.2 (80.0-98.0) fL MCH 25.9 L (27.0-33.0) pg MCHC 32.3 (31.0-36.0) g/dl RDW 13.9 (11.0-16.0) % Plt Count 226 (160-400) X10*3/uL MPV 9.4 (9.4-12.4) fL Immature Gran % (Auto) 0.3 (0.0-0.4) % Neut % (Auto) 42.5 L (45-73) % Lymph % (Auto) 45.4 H (20-40) % [place] % (Auto) 8.4 (2-11) % Eos % (Auto) 2.8 (0-4) % Baso % (Auto) 0.6 (0-2) % Lymph # (Auto) 3.0 (1.2-4.9) X10*3/uL [place] # (Auto) 0.6 (0.1-1.2) X10*3/uL Eos # (Auto) 0.2 (0.0-0.4) X10*3/uL Baso # (Auto) 0.0 (0.0-0.2) X10*3/uL Abs Immat Gran (auto) 0.02 (0.00-0.03) X10*3/uL Absolute Neuts (auto) 2.8 (2.0-8.3) x10*3/uL Absolute Nucleated RBC 0.000 (0.0-0.012) X10*3/uL Nucleated RBC % (auto) 0.0 (0.0-0.2) /100WBC Sodium 138 (135-145) mmol/L Potassium 3.6 (3.3-5.1) mmol/L Chloride 105 (96-108) mmol/L Carbon Dioxide 24 (22-29) mmol/L Anion Gap 13 (12-20) BUN 13 (9-16) mg/dL Creatinine 1.01 (0.5-1.4) mg/dL Estim Creat Clear Calc 114.7 Estimated GFR > 60 Random Glucose 84 (60-115) mg/dL Calcium 9.5 (8.4-10.2) mg/dL Independent Interpretation I performed an independent interpretation of an: Plain X-Ray (constipation) Radiology Impression Discussion of test interpretation with radiology: I have reviewed the radiologist's reading. External Record Review External record reviewed: Outpatient record Prescription Management I considered prescription management with: Other Discharge Plan Discharge Clinical Impression: Constipation Qualifiers: Constipation type: unspecified constipation type Qualified Code(s): K59.00 - Constipation, unspecified Patient Disposition: Home, Self-Care Instructions: Constipation (ED) Additional Instructions: labs reassuring mild stool return for any worsening symptoms or concerns please drink 40 to 60 ounces of water a day Prescriptions: New lactulose 20 gram/30 mL solution 20 g PO DAILY PRN (Reason: constipation) Qty: 1200 0RF No Action sulfacetamide sodium [Bleph-10] 10 % drops 1 drp ophthalmic-Right Q4H Qty: 5 0RF omeprazole 20 mg capsule,delayed release(DR/EC) 20 mg PO DAILY Qty: 30 0RF omeprazole 20 mg capsule,delayed release(DR/EC) 20 mg PO DAILY Qty: 30 0RF Print Language: Azeri
[2024-03-15 08:17] LABS: MANUAL DIFF FLAG NO
[2024-03-15 08:19] LABS: Basophils Percent Auto 0.6 % (0-2); Eosinophils Absolute Auto 0.2 X10*3/uL (0.0-0.4); Eosinophils Percent Auto 2.8 % (0-4); Hematocrit 43.3 % (42.0-52.0); Imm Gran Abs Auto 0.02 X10*3/uL (0.00-0.03); Imm Gran Pct Auto 0.3 % (0.0-0.4); Lymphocytes Percent Auto 45.4 % (20-40); Mean Corpuscular HGB Conc 32.3 g/dl (31.0-36.0); Mean Corpuscular Hemoglobin 25.9 pg (27.0-33.0); Mean Corpuscular Volume 80.2 fL (80.0-98.0); Mean Platelet Volume 9.4 fL (9.4-12.4); Monocytes Absolute Auto 0.6 X10*3/uL (0.1-1.2); Monocytes Percent Auto 8.4 % (2-11); Neutrophils Absolute Auto 2.8 x10*3/uL (2.0-8.3); Neutrophils Percent Auto 42.5 % (45-73); Platelet Count 226 X10*3/uL (160-400); Red Cell Distribution Width 13.9 % (11.0-16.0); White Blood Count 6.7 X10*3/uL (4.8-10.8)
[2024-03-15 08:36] LABS: Anion Gap 13 (12-20); Blood Urea Nitrogen 13 mg/dL (9-16); Calcium 9.5 mg/dL (8.4-10.2); Carbon Dioxide 24 mmol/L (22-29); Chloride 105 mmol/L (96-108); Creatinine Clr Calc Pharmacy 114.7; Estimated Glomerular Filt Rate > 60; Glucose Random 84 mg/dL (60-115); Potassium 3.6 mmol/L (3.3-5.1); Sodium 138 mmol/L (135-145)
[2024-03-15] MEDS: Lactulose 20 GM/30 ML SOLUTION PO (09:25)
[2024-03-15 09:29] VITALS: BP 132/69; PULSE 75; RESP 20; TEMP 36.2; O2SAT 100
== END 2024-03-15 09:29 | disposition home or self-care (01) ==
PROVIDERS: Emergency Provider Emergency Medicine
DX: K59.00 Constipation, unspecified (principal); R10.2 Pelvic and perineal pain; Z79.899 Other long term (current) drug therapy
CPT/HCPCS: 36415; 74018; 80048; 85025; 99283

== ENCOUNTER 2024-03-17 19:36 | Emergency (ER) | payer MEDICAID, SELFPAY ==
[2024-03-17 20:20] VITALS: BP 121/73; PULSE 72; RESP 16; TEMP 36.4; O2SAT 98; BMI 24.2
--- NOTE | 2024-03-17 20:22 | ED_ITS ---
HPI - Fever General Chief Complaint: Fever Stated Complaint: fever Time Seen by Provider: 03/17/24 23:17 Source: patient Mode of arrival: ambulatory Limitations: language barrier (Patient's 1st language is Bel[place]ian, he does speak [place], [facility] [place] was used.) History of Present Illness ED Provider: Dr. José Miguel Dixon HPI Narrative: 23-year-old male who presents emergency department for evaluation of fever and anxiety. The patient was seen here in the emergency department on 03/07/2024 for STD exposure 03/07/2024 for STD exposure. The patient's boyfriend had sexual intercourse with a another man and the patient then had intercourse with his partner. Patient was suspected to have syphilis and he was treated with benzathine penicillin 2.4 million units IM. Patient's T. pallidum antibody and antigen were reactive. Patient was RPR revealed a titer of 1:2 which was consistent with acute (primary) syphilis. Patient has not had intercourse again with his sexual partner in his sexual partner since being treated. Patient states that for the past 2 days he was had subjective fevers at home. He was had chills but no other symptoms. He denied rhinorrhea, sore throat, cough, chest pain, shortness of breath, vomiting or diarrhea. He was had occasional nausea. He was not notice a rash. Patient states he was anxious about becoming HIV positive and has had difficulty sleeping. Related Data Previous Rx's ?Medication ?Instructions ?Recorded sulfacetamide sodium 10 % eye 1 drp ophthalmic-Right Q4H #5 mL 12/01/20 drops (Bleph-10) omeprazole 20 mg capsule,delayed 20 mg PO DAILY #30 caps 06/13/22 release omeprazole 20 mg capsule,delayed 20 mg PO DAILY #30 caps 09/30/22 release lactulose 20 gram/30 mL oral 20 g (30 mL) PO DAILY PRN 03/15/24 solution constipation #1,200 mL hydroxyzine HCl 25 mg tablet 25 mg PO TID PRN anxiety #14 tabs 03/17/24 Allergies Allergy/AdvReac Type Severity Reaction Status Date / Time No Known Allergies Allergy Verified 03/17/24 20:22 Review of Systems Review of Systems: Yes all other systems are reviewed and are negative PMFSH Past Medical History Medical History Asthma No known health problems Social History Social History (Updated 03/15/24 @ 08:17 by Maria Isabel Jurado DO) Alcohol intake: current Alcohol intake frequency: holidays/special occasions only Patient Tobacco Use Status: Never used Tobacco Substance Use Type: Marijuana Advance Directives: No Advance Directives Information Provided: No Do you have a plan to hurt others: No Plan Physical Exam Vital Signs: Vital Signs: Last Vital Signs Temp 98.4 F 03/18/24 00:40 Pulse 69 03/18/24 00:40 Resp 18 03/18/24 00:40 BP 134/85 03/18/24 00:40 Pulse Ox 100 03/18/24 00:40 O2 Del Method Room Air 03/18/24 00:40 BMI result Body Mass Index 24.2 Vital signs revealed an elevated blood pressure of 134/84 otherwise unremarkable Exam: General: Awake, alert in no distress Head: Normocephalic, atraumatic EENT: PERRL, Lids normal, sclera normal, conjunctiva normal, nose normal , ears normal, throat without erythema or exudates Neck: Supple, no adenopathy Lung: breath sounds symmetric, no wheezing, rales or rhonchi Chest: symmetric movement, nontender Heart: regular rate and rhythm, normal S1, S2 no murmurs or rubs Abdomen: soft, non-tender, nondistended, normal bowel sounds Back: no vertebral tenderness, no CVAT Extremities: no deformities, moves all extremities symmetrically Neuro: Awake, alert, oriented, normal speech, cranial nerves intact, moves all extremities symmetrically Psych: Pleasant, cooperative Course Course Course Narrative: This is a rapid medical exam performed by Tianna Vides PA-C. The patient is a 23-year-old male who presents with fever x2 days. The fevers are subjective at home. Denies abdominal pain nausea, vomiting, diarrhea. Denies dysuria, penile discharge or sore throat. Denies cough, cold symptoms, myalgias. Patient is well appearing, is hemodynamically stable is afebrile. We will obtain a viral panel. The patient can return to the waiting room pending his full medical assessment. Medications Administered Discontinued Medications Generic Name Dose Route Start Last Admin Trade Name Freq PRN Reason Stop Dose Admin Hydroxyzine HCl 25 mg 03/17/24 23:48 03/18/24 00:37 Hydroxyzine Hcl 25 Mg Tablet PO 03/17/24 23:49 25 mg ONCE ONE Administration Medical Decision Making Medical Decision Making [facility] Narrative: 23-year-old male who presents emergency department for evaluation of fever and anxiety. Patient does see positive for syphilis 03/07/2024 and was treated with benzathine penicillin 2.4 million units IM. He was not had sexual intercourse with his partner since being treated. Patient was had fever, chills and nausea but no other concerning symptoms. He was not noticed a rash. He states he was anxious about becoming HIV positive. Vital signs revealed an elevated blood pressure otherwise unremarkable. Physical examination was unremarkable Differential diagnosis: ?Includes but is not limited to viral syndrome, acute HIV disease, RSV, COVID-19, influenza Course: 23:54 My interpretation patient's laboratory evaluation as follows: RSV, influenza and COVID-19 were negative. This time I believe the patient probably has a viral syndrome and I did discuss this with him. The patient is very anxious about becoming HIV positive. Patient was anxiety will be treated with hydroxyzine 25 mg t.i.d. as needed. He was given his 1st dose here in the emergency department. He was given printed and verbal instructions and discharged home Admission/Observation Consideration of admission/observation: Escalation of care including admission/observation considered (Yes) Lab Data [facility] Lab Attestation statement: I reviewed the patient's lab results. Labs: Lab Results 03/17/24 Range/Units 20:34 Influenza Type A (PCR) NEGATIVE (Negative) Influenza Type B (PCR) NEGATIVE (Negative) RSV RNA Qual (PCR) NEGATIVE (Negative) SARS-CoV-2 RNA (RT-PCR) NEGATIVE (Negative) Prescription Management I considered prescription management with: Other (Anti anxiolytic-hydroxyzine) Discharge Plan Discharge Clinical Impression: Fever, Anxiety Patient Disposition: Home, Self-Care Instructions: Fever in Adults (ED), Anxiety (ED) Additional Instructions: Your COVID-19, influenza and RSV tests were negative. Take ibuprofen 200 mg pills, 2 pills every 6 hours as needed for pain or fever. Take Tylenol (acetaminophen) 500 mg pills, 2 pills every 6 hours as needed for pain or fever. For anxiety take hydroxyzine 25 mg pills, 1 pill 3 times a day. This medication will make you sleepy. This medication is not addicting Follow-up with your doctor in 2 days. Please return to the emergency department if your symptoms get worse or if you develop any symptoms that are concerning to you. Prescriptions: New hydroxyzine HCl 25 mg tablet 25 mg PO TID PRN (Reason: anxiety) Qty: 14 0RF No Action sulfacetamide sodium [Bleph-10] 10 % drops 1 drp ophthalmic-Right Q4H Qty: 5 0RF omeprazole 20 mg capsule,delayed release(DR/EC) 20 mg PO DAILY Qty: 30 0RF omeprazole 20 mg capsule,delayed release(DR/EC) 20 mg PO DAILY Qty: 30 0RF lactulose 20 gram/30 mL solution 20 g PO DAILY PRN (Reason: constipation) Qty: 1200 0RF Interventions: ED Discharge Assessment Last Done: 03/18/24 00:40 Discharge Date/Time: 03/18/24 00:40 Print Language: Belarusian
[2024-03-17 21:20] LABS: Influenza A PCR NEGATIVE (Negative); Influenza B PCR NEGATIVE (Negative); Resp Syncy Virus RNA Qual PCR NEGATIVE (Negative); SARS COV2 PCR INHOUSE NEGATIVE (Negative)
[2024-03-17 22:21] VITALS: BP 134/85; PULSE 69; RESP 18; TEMP 36.9; O2SAT 100
[2024-03-18] MEDS: hydrOXYzine HCL 25 MG TABLET PO (00:37)
[2024-03-18 00:40] VITALS: BP 134/85; PULSE 69; RESP 18; TEMP 36.9; O2SAT 100
== END 2024-03-18 00:40 | disposition home or self-care (01) ==
PROVIDERS: Physician Assistant Medical; Emergency Provider Emergency Medicine Emergency Medical Services
DX: R50.9 Fever, unspecified (principal); F41.9 Anxiety disorder, unspecified; Z03.818 Encounter for observation for suspected exposure to other biological agents ruled out
CPT/HCPCS: 0241U; 99282; 99283

== ENCOUNTER 2025-02-27 09:50 | Emergency (ER) | payer SELFPAY ==
--- NOTE | ~2025-02-27 | XR_ITS ---
CLINICAL HISTORY: limited ROM, pain fall 4 view left wrist Comparison: None provided Findings: No acute displaced fracture. Lucency at articular surface of the distal radius favored to represent vascular groove by radiographs. No dislocation. No retained metallic foreign body. IMPRESSION: 1. No displaced fracture by initial radiographs. 2. Lucency at articular surface of the distal radius favored to represent vascular groove by radiographs. Consider outpatient MRI, if clinically indicated. 3. No dislocation. This document has been electronically signed by: Zane Magdaleno MD on 02/27/2025 12:02:06
[2025-02-27 10:00] VITALS: BP 120/76; PULSE 64; RESP 16; TEMP 37; O2SAT 100; BMI 24.4
--- OUTSIDE RECORDS SUMMARY | 2025-02-27 10:31 | XMS_ITS | Clinical Summary ---
Author Organization [facility] Address [address] [place] [id number] Phone Care Team Providers Care Electromyographic Technician Name Role Phone Physician, No Pcp Primary Care Provider Unavaila ble Allergies No known active allergies Social History Tobacco Use Types Packs/Day Years Used Date Smoking Tobacco: Never Smokeless Tobacco: Never Tobacco Cessation:Counseling Given: Not Answered Sex and Gender Information Value Date Recorded Sex Assigned at Not on file Legal Sex Male 2:57 PM EST Gender Identity Male 04/01/2024 3:48 PM EST Sexual Orientation Not on file Obstetrics History Last Filed Vital Signs Vital Sign Reading Time Taken Comments Blood Pressure 133/80 04/01/2024 9:43 PM EST Pulse 71 04/01/2024 9:43 PM EST Temperature 36.8 C (98.2 F) 04/01/2024 9:43 PM EST Respiratory Rate 16 04/01/2024 9:43 PM EST Oxygen Saturation 100% 04/01/2024 9:43 PM EST Inhaled Oxygen Concentration - - Weight 72.6 kg (160 lb) 04/01/2024 3:21 PM EST Height 175.3 cm (5' 9 ) 04/01/2024 3:21 PM EST Body Mass Index 23.63 04/01/2024 3:21 PM EST Plan of Treatment Health Maintenance Due Date Last Done Comments Meningococcal B Vaccine (1 of 2 - Standard) 2017 DTaP,Tdap,and Td Vaccines (8 - Td or Tdap) 01/29/2023 01/29/2013, 01/29/2013, 10/09/2005, Additional history exists HIV Screening 04/01/2024 Hepatitis C Screening 04/01/2024 Social Influencers of Health Screening 04/01/2024 Depression Screening 04/15/2024 COVID-19 Vaccine ( season) 2024 02/17/2021, 01/26/2021 Influenza Vaccine (#1) 2024 , 02/21/2022, 01/29/2013 RSV Immunization Adult Patients (1 - 1-dose 75+ series) 2076 Pneumococcal Vaccine: Pediatrics (0 to 5 Years) and At-Risk Patients (6 to 49 Years) Completed 12/18/2002, 03/30/2002, 02/16/2002, Additional history exists HIB Vaccines Completed 12/21/2002, 03/15, 02/16/2002, Additional history exists IPV Vaccines Completed 10/09/2005, 03/15, 02/16/2002, Additional history exists MMR Vaccines Completed 10/09/2005, 11/19/2002 Varicella Vaccines Completed 01/29/2013, 11/19/2002 HPV Vaccines Completed 11/21/2016, 01/29/2013 Meningococcal ACWY Vaccine Completed 09/11/2018, Hepatitis A Vaccines Completed 08/30/2020, 09/12/19 Hepatitis B Vaccines Completed 07/05/2023, 07/03/2022, 12/21/2002, Additional history exists RSV Immunization Patients Under 20 months Aged Out No longer eligible based on patient's age to complete this topic Insurance MEDICAID - [place] Care Teams Electromyographic Technician Relationship Specialty Start Date End Date Physician, No Pcp PCP - General 04/01/24
--- NOTE | 2025-02-27 11:53 | ED_ITS ---
HPI - Extremity Problem General Chief complaint: Extremity Problem Stated complaint: Injury Time Seen by Provider: 02/27/25 10:26 Source: patient and RN notes reviewed Mode of arrival: ambulatory Limitations: no limitations History of Present Illness ED Provider: Belkis Briceno PA-C HPI Narrative: This is a 24-year-old left-handed male, with no known medical problems, who presents with left wrist pain that started last night while arm-wrestling a stronger opponent. He heard a ?crack? at the moment of injury and has had significant pain since, especially with movement. Pain is intermittent, absent at rest, and worsens with certain wrist motions; patient reports a clicking sensation and feeling ?something coming out and going in again? inside the wrist. He is able to flex and extend but cannot deviate the wrist to one side without marked pain. Pain localizes to the proximal wrist/forearm region and radiates into the left pinky; denies pain in the hand itself. No prior fractures or surgeries; history of minor wrist injuries playing volleyball. Has taken no analgesics since injury. No other complaints or concerns at this time. MD Complaint: extremity pain Onset (ago): day(s) Pain Consistency: constant Location: left and upper extremity Radiation: distal Relieving factors: immobilization Exacerbating factors: range of motion Associated symptoms: denies other symptoms Related Data Previous Rx's ?Medication ?Instructions ?Recorded sulfacetamide sodium 10 % eye 1 drp ophthalmic-Right Q 4H #5 mL 12/01/20 drops (Bleph-10) omeprazole 20 mg capsule,delayed 20 mg PO DAILY #30 ca ps 06/13/22 release omeprazole 20 mg capsule,delayed 20 mg PO DAILY #30 ca ps 09/30/22 release lactulose 20 gram/30 mL oral 20 g (30 mL) PO DAILY PRN 03/15/24 solution constipation #1,200 mL hydroxyzine HCl 25 mg tablet 25 mg PO TID PRN anxiety #14 tabs 03/17/24 acetaminophen 500 mg tablet 500 mg PO Q6H PRN pain #30 tabs 02/27/25 (Tylenol Extra Strength) ibuprofen 600 mg tablet 600 mg PO Q6H PRN pain #30 t abs 02/27/25 Allergies Allergy/AdvReac Type Severity Reaction Status Date / Time No Known Allergies Allergy Verified 02/27/25 10:03 Review of Systems Review of Systems: Constitutional : No Fever, No Chills ENT/Mouth : No sore throat, No Rhinorrhea Eyes: No Eye Pain, No Swelling, No Redness Cardiovascular : No Chest Pain, No SOB Respiratory : No Cough, No Sputum Gastrointestinal : No Nausea, No Vomiting, No Diarrhea, No abdominal Pain Genitourinary : No Dysuria, No Hematuria Musculoskeletal : + joint pain, No Myalgias, No Joint Swelling Skin : No Skin Lesions Neuro : No Weakness, No Numbness, No Headache All other systems reviewed and are negative Yes all other systems are reviewed and are negative Constitutional: Constitutional: Reports as per [facility] Past Medical History Medical History Asthma No known health problems Social History Social History (Updated 03/15/24 @ 08:17 by Maria Isabel Jurado DO) Alcohol intake: current Alcohol intake frequency: holidays/special occasions only Patient Tobacco Use Status: Never used Tobacco Substance Use Type: Marijuana Advance Directives: No Advance Directives Information Provided: No Physical Exam Exam: Exam: General: Awake, alert, and oriented X3. No acute distress. HEENT: Normal inspection CVS: Normal heart rate and rhythm. Pulses normal. Respiratory: No respiratory distress Skin: Warm, dry, no rashes noted to exposed skin. Normal skin color. Normal skin turgor. Extremities: Left Upper Extremity: Palpable distal pulses. Tenderness over proximal left wrist/forearm overlying the left ulna; no tenderness over hand. No obvious bony deformity or swelling. Able to flex/extend wrist; limited radial/ulnar deviation due to pain. Reports palpable/audible ?click? with certain movements. Neuro: Oriented X 3. No motor deficit. No sensory deficit. Vital Signs: Vital Signs: Last Vital Signs Temp 98.6 F 02/27/25 12:43 Pulse 64 02/27/25 12:43 Resp 16 02/27/25 12:43 BP 120/76 02/27/25 12:43 Pulse Ox 100 02/27/25 12:43 O2 Del Method Room Air 02/27/25 12:43 BMI result Body Mass Index 24.4 Const: General: cooperative, comfortable and no acute distress Orientation/consciousness: patient oriented x3 Limitations: no limitations HEENT: Head: Yes normal to inspection, Yes normocephalic and Yes atraumatic Ears: hearing grossly normal bilaterally General nose exam: Normal external nose present Face and sinus: Yes normal facial exam Mouth: Normal oral and palatal mucosa present, oropharynx normal and moist mucous membranes Throat: Yes posterior oropharynx normal Eyes: General: appearance normal, both eyes and all related structures Eyelids: Yes eyelids normal Conjunctivae: conjunctivae normal Sclerae: sclerae normal Pupils: Equal, round and reactive pupils present EOM: EOMs intact bilaterally Neck: Neck: Yes normal visual inspection, Yes full ROM and Yes no lymphadenopathy Lymphatic: no lymphadenopathy noted Chest: Chest palpation & inspection: normal inspection of the chest Resp: Effort & Inspection: normal respiratory effort and able to speak in complete sentences Auscultation: clear to auscultation bilaterally, no crackles, no rales, no rhonchi and no wheezes Cardio: Rate: regular rate Rhythm: regular rhythm Heart sounds: S1 normal heart sound present and S2 normal heart sound present GI: Inspection: Yes normal to inspection Skin: General skin exam: no rashes or lesions noted Trauma: no lacerations or abrasions Wounds: no wounds Neuro: General: patient oriented x3 and moves all extremities Cranial nerves: Yes Equal, round and reactive pupils present Extrem: Right lower extremity: normal to inspection Left lower extremity: normal to inspection Medical Decision Making Medical Decision Making MDM Narrative: This is a 24-year-old male with acute left wrist injury after arm wrestling, clinically concerning for possible fracture vs soft-tissue injury. Awaiting radiographic confirmation. Problem #1: Left wrist injury ? r/o fracture Assessment: Acute traumatic wrist pain with focal tenderness and mechanical symptoms; mechanism and exam findings raise concern for occult fracture. Plan: * Await X-ray interpretation. * If fracture present: place in splint and arrange orthopedic follow-up. * If no fracture: treat as soft-tissue injury, provide supportive care, and return precautions. * Offer ibuprofen/Tylenol and ice for comfort (patient declined medication at this time, accepted offer of snack/drink). Problem #2: Pain management Assessment: Intermittent pain with movement; none at rest. Plan: * Offer NSAID or acetaminophen in ED as needed. * Ice pack offered for symptomatic relief. * Advise activity modification: avoid painful wrist movements. 12:11 PM 02/27/2025 (Belkis Briceno PA-C): X-rays Revealing no displaced fr acture. There is a lucency at the articular surface of the distal radius favored to represent a vascular groove by radiographs. Patient has no tenderness along this area, tenderness only along the distal ulna. Patient will be given referral to computer system specialist for further management if symptoms persist. Differential Diagnosis Differential Diagnoses: The differential diagnosis associated with the presentation includes Sprain, strain, contusion, fracture, dislocation Admission/Observation Consideration of admission/observation: Escalation of care including admission/observation considered Radiology Impression Discussion of test interpretation with radiology: I have reviewed the radiologist's reading. Radiologist Impression: CLINICAL HISTORY: limited ROM, pain fall 4 view left wrist Comparison: None provided Findings: No acute displaced fracture. Lucency at articular surface of the distal radius favored to represent vascular groove by radiographs. No dislocation. No retained metallic foreign body. IMPRESSION: 1. No displaced fracture by initial radiographs. 2. Lucency at articular surface of the distal radius favored to represent vascular groove by radiographs. Consider outpatient MRI, if clinically indicated. 3. No dislocation. This document has been electronically signed by: Znae Magdaleno MD on 02/27/2025 12:02:06 Dictated By: Zane Magdaleno MD Discharge Plan Discharge Clinical Impression: Left wrist sprain Patient Disposition: Home, Self-Care Instructions: Wrist Injury (ED), Wrist Sprain (ED) Additional Instructions: Your wrist injury does not show any broken bones on X-ray, but you have a soft- tissue injury (such as a sprain or strain). Most people recover well with simple care at home. * Rest your wrist:?Avoid activities that cause pain, especially twisting or [id number] movements. * Ice:?Apply an ice pack wrapped in a cloth to your wrist for 15-20 minutes every 2-3 hours for the first 48 hours to reduce pain and swelling.? * Compression and elevation:?If swelling develops, you may use a soft bandage and keep your wrist elevated above heart level. Pain Management: * You may take?ibuprofen (Advil, Motrin)?or?acetaminophen (Tylenol)?as needed for pain, following package instructions. Do not exceed the recommended dose. I have sent over ibuprofen and Tylenol to your pharmacy. * Ice can also help with pain and swelling.? Activity Restrictions: * Limit use of your injured wrist?until pain improves. Avoid lifting, pushing, pulling, or repetitive wrist movements. * You may return to light activities as comfort allows, but avoid sports or heavy work until you can move your wrist without pain.? * Most people need to limit wrist use for about 1-2 weeks, but full recovery may take up to 6 weeks. Return Precautions: Contact your doctor or return to the emergency department if you experience: * Increasing pain, swelling, or redness * Numbness, tingling, or weakness in your hand or fingers * Inability to move your wrist or fingers * Severe pain not controlled by medication * New deformity or your wrist looks crooked These may be signs of a more serious injury that needs further evaluation. Follow-Up Recommendations: * If your pain and function do not improve within 2 weeks, or if symptoms worsen, follow up with your primary care provider or a hand specialist. * If pain persists beyond 6 weeks, referral to a hand specialist is recommended.? * Repeat imaging (such as X-ray or MRI) may be considered if symptoms do not resolve. If you have any questions or concerns, please contact your healthcare provider. Prescriptions: New ibuprofen 600 mg tablet 600 mg PO Q6H PRN (Reason: pain) Qty: 30 0RF acetaminophen [Tylenol Extra Strength] 500 mg tablet 500 mg PO Q6H PRN (Reason: pain) Qty: 30 0RF No Action sulfacetamide sodium [Bleph-10] 10 % drops 1 drp ophthalmic-Right Q4H Qty: 5 0RF omeprazole 20 mg capsule,delayed release(DR/EC) 20 mg PO DAILY Qty: 30 0RF omeprazole 20 mg capsule,delayed release(DR/EC) 20 mg PO DAILY Qty: 30 0RF lactulose 20 gram/30 mL solution 20 g PO DAILY PRN (Reason: constipation) Qty: 1200 0RF hydroxyzine HCl 25 mg tablet 25 mg PO TID PRN (Reason: anxiety) Qty: 14 0RF Referrals: [facility] [Provider Group] Stand Alone Forms: Work/School Release Interventions: ED Discharge Assessment Last Done: 02/27/25 12:43 Discharge Date/Time: 02/27/25 12:43 Print Language: Amharic
[2025-02-27 12:43] VITALS: BP 120/76; PULSE 64; RESP 16; TEMP 37; O2SAT 100
== END 2025-02-27 12:43 | disposition home or self-care (01) ==
PROVIDERS: Emergency Provider Emergency Medicine
DX: S63.502A Unspecified sprain of left wrist, initial encounter (principal); X58.XXXA Exposure to other specified factors, initial encounter; Y93.72 Activity, wrestling; Y92.9 Unspecified place or not applicable; Y99.9 Unspecified external cause status
CPT/HCPCS: 73110; 99282; 99283

== ENCOUNTER → 2025-02-27 10:10 | Outpatient (BNV) | payer SELFPAY | PROVIDERS: Emergency Provider Emergency Medicine; Visit Provider Radiology Neuroradiology | DX: M25.532 Pain in left wrist (principal); Z04.3 Encounter for examination and observation following other accident | CPT/HCPCS: 73110 ==